=== PATIENT | female | born 1960 | race Caucasian/White ===

== ENCOUNTER 2023-01-04 11:33 | Emergency (ER) | payer BC, SELFPAY ==
--- NOTE | ~2023-01-04 | XR_ITS ---
XR facial bones min 3V DATE: 01/04/2023 12:15 INDICATION: Facial injury, bruising one week ago TECHNIQUE: uriah Jim, lateral and submental vertical views COMPARISON: None FINDINGS: The frontozygomatic sutures, orbital rims and zygomatic arches appear intact. The nasal bon es appear intact on the Sow' view bladder are largely obscured on the lateral views due to overpen etration. If there is concern for nasal fracture, consider nasal bone examination. No fluid levels are noted in the paranasal sinuses. The mastoid air cells appear unremarkable. No man dibular fracture or dislocation is evident on this limited examination. IMPRESSION: No facial fracture is detected Reviewed, dictated and finalized at location A. [employer]ACHINE [employer]
[2023-01-04 11:40] VITALS: BP 123/86; PULSE 73; RESP 20; TEMP 36.7; O2SAT 100
--- NOTE | 2023-01-04 11:57 | ED.FALL ---
HPI - Fall General Chief Complaint: Fall Stated Complaint: Injuries to chin and nose Time Seen by Provider: 01/04/23 11:57 History of Present Illness HPI Narrative: PATIENT PRESENTS WITH BRUISING TO HER FACE CHIN AND NASAL INJURY. PATIENT STATES 1 WEEK AGO SHE WAS CARRYING A TRAY OF FOOD GOING DOWN STAIRS LOST HER BALANCE AND FELL DOWN 9 STAIRS LANDING FACE 1ST ON CERAMIC FLOOR. PATIENT DENIES ANY LOSS OF CONSCIOUSNESS. PATIENT HAS BRUISING TO HER FACE IN VARIOUS STAGES OF HEALING. NO OPEN AREAS NOTED SLIGHT DEFORMITY TO BRIDGE OF NOSE PATIENT DENIES ANY NOSEBLEEDS PATIENT STATES SHE IS NOT TAKING ANY BLOOD THINNERS. Related Data Home Medications Medication Instructions Recorded Confirmed citalopram 20 mg tablet mg 01/04/23 hydrochlorothiazide 25 mg tablet mg 01/04/23 simvastatin 20 mg tablet mg 01/04/23 valsartan 160 mg tablet mg 01/04/23 Allergies Allergy/AdvReac Type Severity Reaction Status Date / Time No Known Allergies Allergy Verified 01/04/23 11:42 Review of Systems Review of Systems: CONSTITUTIONAL: DENIES FEVER, CHILLS, OR SWEATS. EYES: DENIES VISUAL CHANGES, REDNESS, OR DISCHARGE. ENT: DENIES RHINORRHEA, CONGESTION, SORE THROAT, OR OTALGIA. CARDIOVASCULAR: DENIES CHEST PAIN, PALPITATIONS, OR EDEMA. RESPIRATORY: DENIES COUGH OR DYSPNEA. GASTROINTESTINAL: DENIES ABDOMINAL PAIN, NAUSEA, VOMITING, OR DIARRHEA. GENITOURINARY: DENIES DYSURIA OR HEMATURIA. SKIN: DENIES RASH OR ITCHING. MUSCULOSKELETAL: DENIES BACK PAIN, JOINT PAIN, OR MYALGIA. NEUROLOGIC: DENIES HEADACHE, NUMBNESS, OR WEAKNESS. PSYCHIATRIC: DENIES ANXIETY OR DEPRESSION. PMFSH Comments AT TIME OF SIGNATURE, AGREE WITH NURSING PAST MEDICAL, SURGICAL, SOCIAL AND FAMILY HISTORY. THERE IS NO RELEVANT FAMILY HISTORY PERTINENT TO THE PRESENTING COMPLAINT Exam Narrative: GENERAL: WELL-APPEARING, WELL-NOURISHED, AND IN NO ACUTE DISTRESS. HEAD: NORMOCEPHALIC, ATRAUMATIC. BRUISING IN VARIOUS STAGES OF HEALING TO BOTH CHEEK BONES AND NECK. SLIGHT DEFORMITY TO BRIDGE OF NOSE NO EVIDENCE OF NOSE BLEEDING ABLE TO BREATHE THROUGH BOTH NARES EYES: PERRLA AND EOMI. ENT: NARES CLEAR, NO RHINORRHEA OR EPISTAXIS. MUCOUS MEMBRANES MOIST. CAN OPEN MOUTH FULLY NO TRISMUS NECK: SUPPLE.NO PARASPINAL TENDERNESS, NO VERTEBRAL TENDERNESS OR STEP OFFS. NO SWELLING. NORMAL ROM OF NECK. NORMAL UE STRENGTH AND SENSATION? CHEST: CLEAR TO AUSCULTATION. NO RESPIRATORY DISTRESS. HEART: REGULAR RATE AND RHYTHM. NO MURMUR HEARD. NORMAL PERIPHERAL PULSES. ABDOMEN: SOFT, NONTENDER, NONDISTENDED, NORMAL ACTIVE BOWEL SOUNDS. EXTREMITIES: NORMAL RANGE OF MOTION. NO EDEMA. SKIN: WARM, DRY, NO RASH. NEURO: NO FOCAL DEFICITS. ALERT AND ORIENTED X3. BHASKAR COMA SCALE EYE OPENING: SPONTANEOUS 4 BHASKAR COMA SCALE MOTOR: OBEYS COMMANDS 6 BHASKAR COMA SCALE VERBAL: ORIENTED 5 BHASKAR COMA SCALE TOTAL 15 Course Course Level of Care: Express Care Visit Vital Signs Vital signs: Vital Signs Temperature 36.7 C 01/04/23 11:40 Pulse Rate 73 01/04/23 11:40 Respiratory Rate 20 01/04/23 11:40 Blood Pressure 123/86 01/04/23 11:40 Pulse Oximetry 100 01/04/23 11:40 Oxygen Delivery Room Air 01/04/23 11:40 Temperature 36.7 C 01/04/23 11:40 Pulse Rate 73 01/04/23 11:40 Respiratory Rate 20 01/04/23 11:40 Blood Pressure 123/86 01/04/23 11:40 Pulse Oximetry 100 01/04/23 11:40 Oxygen Delivery Room Air 01/04/23 11:40 X-RAYDISCUSSED WITH PATIENT, X-RAY FINDINGS AND THAT X-RAYS WERE NEGATIVE FOR FRACTURE OR DISLOCATIONS. X-RAYS CANNOT RULE OUT TENDON, LIGAMENT, OR SOFT TISSUE STRUCTURE INJURIES AND IF SYMPTOMS PERSIST OR WORSEN, FURTHER EVALUATION MAY BE WARRANTED FOR POTENTIAL IMAGING. ADVISED REST, ICE, COMPRESSION, AND ELEVATION. IF PRESCRIBED ANY MEDICATIONS, TAKE DIRECTED. IF PRESCRIBED MUSCLE RELAXERS, DO NOT DRINK ALCOHOL, DRIVE, OR OPERATE ANY HEAVY MACHINERY WHILE TAKING. INSTRUCTED ON WHEN TO F/U WITH PCP AND CRITICAL RED FLAGS S/S DISCUSSE
== END 2023-01-04 12:48 | disposition home or self-care (01) ==
PROVIDERS: Emergency Provider Nurse Practitioner Family; PCP Nurse Practitioner Family
DX: S00.83XA Contusion of other part of head, initial encounter (principal); S10.93XA Contusion of unspecified part of neck, initial encounter; S00.31XA Abrasion of nose, initial encounter; W10.9XXA Fall (on) (from) unspecified stairs and steps, initial encounter; E78.00 Pure hypercholesterolemia, unspecified; I10 Essential (primary) hypertension
CPT/HCPCS: 70150; 99213; G0463

== ENCOUNTER 2024-11-30 12:06 | Outpatient (CLI) | payer BC, SELFPAY ==
--- NOTE | 2024-11-30 12:18 | ECG_ITS ---
Test Date: 2024-11-30 12:36:20 Measurements Intervals [place] Rate: 62 P: 35 CA: 204 QRS: 51 QRSD: 95 T: 11 QT: 434 QTc: 442 Interpretive Statements SINUS RHYTHM No previous ECG available for comparison Electronically Signed On 12-01-2024 17:36:41 SMOKE JUMPER by Giovanny John M.D.
[2024-11-30 12:35] LABS: Anion Gap 4 mmol/L (4-12); Blood Urea Nitrogen 19 mg/dL (7-17); Calcium 9.2 mg/dL (8.4-10.2); Carbon Dioxide 32 mmol/L (22-30); Chloride 101 mmol/L (98-107); Estimated Glomerular Filt Rate > 60; Glucose 122 mg/dL (65-110); Potassium 4.2 mmol/L (3.4-5.0); Sodium 137 mmol/L (137-145)
== END 2024-11-30 12:07 | disposition home or self-care (01) ==
LOC: ANHLAB 12:08
PROVIDERS: PCP Nurse Practitioner Family; Visit Provider Anesthesiology
DX: Z01.818 Encounter for other preprocedural examination (principal); I10 Essential (primary) hypertension; Z79.899 Other long term (current) drug therapy
CPT/HCPCS: 36415; 80048; 93005